=== PATIENT | male | born 1985 | race Two or more races ===

== ENCOUNTER 2018-03-14 11:12 | Emergency (ER) | payer SELFPAY ==
[~2018-03-14] VITALS: Ht 172.7 cm; Wt 74.8 kg
[2018-03-14 11:17] VITALS: BP 130/75
[2018-03-14] MEDS ORDERED: IBUPROFEN600 MG ORAL (11:31)
[2018-03-14] MEDS ORDERED: AUGMENTIN 875-1 EAC1 ORAL (11:31)
[2018-03-14 11:40] VITALS: BP 130/75
--- NOTE | 2018-03-14 14:34 | Emergency Room Report ---
History of Present Illness General Chief Complaint: Fever Source: Patient Present Illness HPI Patient presents emergency department today complaining sore throat. Patient states that he is HIV positive but the viral load is undetectable. Patient is sexually active. He complains of sore throat that's been on for last few days associated fevers and chills. Denies any cough runny nose. Denies any chest pain shortness of breath. No other complete are noted. Symptoms noted to be moderate. No other modifying factors. No other associated signs and symptoms. No other complaints were noted. Allergies: Coded Allergies: IODINE (Verified Allergy, Unknown, 03/14/18) Patient History Past Medical History: HIV, other - leukemia Past Surgical History: none Pertinent Family History: none Social History: Denies: smoking, alcohol use, drug use Reviewed Nursing Documentation: PMH: Agreed; PSxH: Agreed Nursing Documentation-PMH Hx Cancer: Yes - Leukemia Review of Systems All Other Systems: negative except mentioned in HPI Physical Exam Vital Signs Date Time Temp Pulse Resp B/P (MAP) Pulse Ox O2 Delivery O2 Flow Rate FiO2 03/14/18 11:16 101.3 123 23 130/75 10 Room Air 101.3 Sp02 EP Interpretation: reviewed, normal General Appearance: normal inspection, well appearing, no apparent distress, alert Head: atraumatic Eyes: bilateral eye normal inspection ENT: hearing grossly normal, normal voice, pharyngeal erythema, tonsillar exudate Neck: normal inspection, full range of motion, supple, no bony tend Respiratory: normal inspection, lungs clear, normal breath sounds, no respiratory distress, no retraction, no wheezing Cardiovascular #1: regular rate, rhythm, no edema Gastrointestinal: normal inspection, normal bowel sounds, non tender, soft, no guarding, no hernia Genitourinary: no CVA tenderness Musculoskeletal: normal inspection, back normal, normal range of motion Neurologic: normal inspection, alert, responsive, speech normal Psychiatric: normal inspection, judgement/insight normal, mood/affect normal Skin: normal inspection, normal color, no rash Medical Decision Making Diagnostic Impression: Primary Impression: Acute bacterial pharyngitis Additional Impression: Fever ER Course Patient presents emergency department today complaining fevers chills or throat. Differential considerations include viral syndrome, pharyngitis, peritonsillar abscess just name a few. Patient's exam consistent with pharyngitis. I felt the patient benefit from antibiotics. Patient was started on Augmentin.Patient is advised to follow up with primary doctor in 2-3 days and return the emergency room for any worsening symptoms and as needed. Last Vital Signs Date Time Temp Pulse Resp B/P (MAP) Pulse Ox O2 Delivery O2 Flow Rate FiO2 03/14/18 11:40 101.3 78 23 130/75 10 Room Air 101.3 Status: improved Disposition: HOME, SELF-CARE Condition: Stable Scripts Amoxicillin/Potassium Clav 875-125* (AUGMENTIN 875-125 TABLET*) 1 Each Tablet 1 TAB ORAL TWICE A DAY for 7 Days, TAB Prov: Antonio Phillip MD 03/14/18 Ibuprofen* (MOTRIN*) 600 Mg Tablet 600 MG ORAL Q8H PRN for For Pain, #30 TAB 0 Refills Prov: Antonio Phillip MD 03/14/18 Referrals: NOT CHOSEN IPA/,REFERRING (PCP) Patient Instructions: Sore Throat, [id number], Fever, Adult, [id number] Antonio Phillip MD Mar 14, 2018 14:34
== END 2018-03-14 11:40 | disposition home or self-care (01) ==
LOC: EMR 11:30
DX: J02.9 Acute pharyngitis, unspecified (principal); Z85.6 Personal history of leukemia
CPT/HCPCS: 99282